=== PATIENT | female | born 1985 | race Caucasian/White ===

== ENCOUNTER 2023-05-07 11:57 | Emergency (ER) | payer OTHER ==
[~2023-05-07] VITALS: Ht 170.2 cm; Wt 71.2 kg
[~2023-05-07 11:57] MED LIST: Allegra-D PO; IBUP800 PO; Ultram50 MG PO
[2023-05-07 13:11] LABS: BASOPHILS ABSOLUTE AUTO 0.04 K/mm3 (0.00-0.23); BASOPHILS PERCENT AUTO 0 % (0-2); EOSINOPHILS ABSOLUTE AUTO 0.15 K/mm3 (0.00-0.68); EOSINOPHILS PERCENT AUTO 2 % (0-6); Hemoglobin 12.1 g/dL (11.5-16.0); IMMATURE GRAN ABSOLUTE AUTO 0.06 K/mm3 (0.00-0.10); IMMATURE GRAN PERCENT AUTO 1 % (0-1); LYMPHOCYTES ABSOLUTE AUTO 0.61 K/mm3 (0.84-5.20); LYMPHOCYTES PERCENT AUTO 6 % (21-46); MONOCYTES ABSOLUTE AUTO 0.66 K/mm3 (0.16-1.47); MONOCYTES PERCENT AUTO 7 % (4-13); Mean Corpuscular HGB 27.6 pg (26.0-34.0); Mean Corpuscular HGB Conc 32.7 g/dL (31.5-36.5); Mean Corpuscular Volume 84 fL (80-100); Mean Platelet Volume 9.2 fL (9.1-12.4); NEUTROPHILS ABSOLUTE AUTO 8.04 K/mm3 (1.96-9.15); NEUTROPHILS PERCENT AUTO 84 % (41-73); Platelet Count 269 K/mm3 (150-400); RDW Coefficient Variation 13.5 % (11.7-14.2); RDW Standard Deviation 41.7 fL (35.1-46.3); Red Blood Cell Count 4.39 M/mm3 (3.80-5.20); White Blood Cell Count 9.56 K/mm3 (4.00-11.30)
[2023-05-07 13:43] LABS: Albumin, Blood 2.7 g/dL (3.4-5.0); Albumin/Globulin Ratio 0.5 (0.8-1.8); Bilirubin, Total 0.4 mg/dL (0.1-1.0); Bun/Creatinine Ratio 15.1 (12.0-20.0); Calcium, Blood 8.6 mg/dL (8.5-10.1); Creatinine, Blood 0.53 mg/dL (0.40-1.00); Globulin, Blood 5.1 g/dL (2.2-4.0); Potassium, Blood 4.6 mmol/L (3.5-5.5); Total Protein, Blood 7.8 g/dL (6.4-8.2)
[2023-05-07] MEDS ORDERED: PREG150 PO (14:10)
[2023-05-07] MEDS ORDERED: DESV50 PO (14:10)
[2023-05-07] MEDS ORDERED: AMIT25 PO (14:11)
[2023-05-07] MEDS ORDERED: CELE100 PO (14:11)
[2023-05-07] MEDS ORDERED: CEPH500 PO (15:02)
[2023-05-07 16:00] VITALS: BP 119/70
[2023-05-07 16:42] LABS: IMMATURE RETIC FRACTION 9.2 % (2.3-16.0); RETICULOCYTE COUNT PERCENT 1.48 % (0.50-2.50)
== END 2023-05-07 16:31 | disposition home or self-care (01) ==
LOC: ER 11:57
PROVIDERS: Emergency Medicine; Physician Assistant
DX: L03.116 Cellulitis of left lower limb (principal); Z79.899 Other long term (current) drug therapy; Z89.211 Acquired absence of right upper limb below elbow
CPT/HCPCS: 80053; 85025; 85045; 96365; 99283-25; J0696

== ENCOUNTER 2023-05-08 08:53 | Day surgery (SDC) | payer OTHER ==
[~2023-05-08 08:53] MED LIST changes: +AMIT25 PO; +CELE100 PO; +CEPH500 PO; +DESV50 PO; +PREG150 PO
[2023-05-08 10:00] VITALS: BP 117/80
[2023-05-09] MEDS ORDERED: TIZA4 PO (10:12)
[2023-05-09] MEDS ORDERED: Phentermine HCl30 MG PO (10:13)
== END 2023-05-08 10:45 | disposition home or self-care (01) ==
LOC: ATC 08:53
DX: L03.116 Cellulitis of left lower limb (principal)
CPT/HCPCS: 96365; J0696

== ENCOUNTER 2023-05-09 04:31 | Day surgery (SDC) | payer OTHER ==
[2023-05-09 10:02] VITALS: BP 125/91
[2023-05-09] MEDS ORDERED: TIZA4 PO (10:12)
[2023-05-09] MEDS ORDERED: Phentermine HCl30 MG PO (10:13)
== END 2023-05-09 10:27 | disposition home or self-care (01) ==
LOC: ATC 04:31
DX: L03.116 Cellulitis of left lower limb (principal); Z79.899 Other long term (current) drug therapy
CPT/HCPCS: 96365; J0696

== ENCOUNTER 2023-05-10 04:46 | Day surgery (SDC) | payer OTHER ==
[~2023-05-10 04:46] MED LIST changes: +Phentermine HCl30 MG PO; +TIZA4 PO
[2023-05-10 10:11] VITALS: BP 120/72
== END 2023-05-10 10:45 | disposition home or self-care (01) ==
LOC: ATC 04:46
DX: L03.116 Cellulitis of left lower limb (principal); Z79.899 Other long term (current) drug therapy
CPT/HCPCS: 96365; J0696